=== PATIENT | male | born 1970 | race Caucasian/White ===

== ENCOUNTER 2017-06-05 17:03 | Emergency (ER) | payer OTHER ==
[2017-06-05] MEDS ORDERED: Cyclobenzaprine 10 MG Tab PO ONE (18:33)
[2017-06-05] MEDS ORDERED: traMADol 50 MG Tab PO ONE (18:33)
--- NOTE | 2017-06-05 18:33 | EDM.PDOC ---
ED HPI GENERAL MEDICAL PROBLEM - General Chief Complaint: Back Pain or Injury Stated Complaint: BACK INJURY Time Seen by Provider: 06/05/17 18:15 Source of Information: Reports: Patient History Limitations: Reports: No Limitations - History of Present Illness INITIAL COMMENTS - FREE TEXT/NARRATIVE: 47 yo male was pushing a pair of jet skiis onto a trailer this past Sunday. With loading of the 2nd one he injured his back. He had a hard time getting out of bed for the next couple of days. Is slightly better now. Has no primary care provider. No pain down his leg(s). No bowel or bladder incontinence. No hx of back issues. 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 (see below) (pain patch(OTC)) - Related Data Home Meds: Home Meds Cyclobenzaprine [Flexeril] 10 mg PO TID PRN #16 tab 06/05/17 [Rx] traMADol [Ultram] 50 - 100 mg PO Q6H PRN #24 tab 06/05/17 [Rx] ED ROS GENERAL - Review of Systems Review Of Systems: See Below Constitutional: Reports: No Symptoms Respiratory: Reports: No Symptoms Cardiovascular: Reports: No Symptoms GI/Abdominal: Reports: No Symptoms : Reports: No Symptoms Musculoskeletal: Reports: Back Pain Skin: Reports: No Symptoms Neurological: Reports: No Symptoms ED EXAM,LOWER BACK PAIN/INJURY - Physical Exam Exam: See Below Exam Limited By: No Limitations General Appearance: Alert, WD/WN, No Apparent Distress Eye Exam: Bilateral Eye: Normal Inspection Ears: Hearing Grossly Normal Nose: Normal Inspection, Normal Mucosa, No Blood Throat/Mouth: Normal Voice, No Airway Compromise Head: Atraumatic, Normocephalic Neck: Normal Inspection Respiratory/Chest: Lungs Clear, No Accessory Muscle Use Cardiovascular: Regular Rate, Rhythm Back Exam: Normal Inspection, Muscle Spasm (R lumbar paraspinous muscles). No: CVA Tenderness (R), CVA Tenderness (L), Vertebral Tenderness Extremities: Normal Inspection, Normal Range of Motion, Non-Tender, No Pedal Edema Neurological: Alert, Normal Mood/Affect, CN II-XII Intact, No Motor/Sensory Deficits, Oriented x 3 Psychiatric: Normal Affect, Normal Mood Skin Exam: Warm, Dry, Intact, Normal Color, No Rash Lymphatic: No Adenopathy Departure - Departure Time of Disposition: 18:40 Disposition: Home, Self-Care 01 Condition: Good Clinical Impression: Low back strain Qualifiers: Encounter type: initial encounter Qualified Code(s): S39.012A - Strain of muscle, fascia and tendon of lower back, initial encounter - Discharge Information Prescriptions: Cyclobenzaprine [Flexeril] 10 mg PO TID PRN #16 tab PRN Reason: Pain traMADol [Ultram] 50 - 100 mg PO Q6H PRN #24 tab PRN Reason: Pain Referrals: PCP,None [Primary Care Provider] - Forms: ED Department Discharge, ED Return to Work/School Form Care Plan Goals: Take Flexeril 10 mg every 8 hrs as needed. Take ibuprofen or Aleve per package instructions for additional pain relief. May add acetaminophen if additional relief is needed. Take Tramadol 50 mg 1-2 every 6 hrs for more pain relief yet if needed. No lifting, bending or twisting. Apply moist heat to area several times a day. Recheck in the clinic within the week, call for an appt.
== END 2017-06-05 18:50 | disposition home or self-care (01) ==
LOC: FB.ED 17:03
DX: S39.012A Strain of muscle, fascia and tendon of lower back, initial encounter (principal); X50.1XXA Overexertion from prolonged static or awkward postures, initial encounter
CPT/HCPCS: 99283; A9270-GY